=== PATIENT | female | born 1960 | race Caucasian/White ===

== ENCOUNTER 2018-02-23 15:24 | Emergency (ER) | payer OTHER ==
[2018-02-23] MEDS ORDERED: LIDOCAINE 5% (700 MG) TRANSDERMAL ADH..PATCH TP ONE (16:03)
--- NOTE | 2018-02-23 16:44 | RADIOLOGY REPORT (SQ) ---
EXAM DESCRIPTION: L SPINE WHOLE COMPLETED DATE/TIME: 02/23/2018 4:33 pm REASON FOR STUDY: fall pain COMPARISON: None. NUMBER OF VIEWS: Five views including obliques. TECHNIQUE: AP, lateral, oblique, and sacral radiographic images acquired of the lumbar spine. LIMITATIONS: None. FINDINGS: MINERALIZATION: Normal. SEGMENTATION: Normal. No transitional anatomy. ALIGNMENT: Normal. VERTEBRAE: Maintained height. No fracture or worrisome bone lesion. DISCS: Preserved height. No significant osteophytes or end plate irregularity. POSTERIOR ELEMENTS: Intact. Mild arthritic changes lower facet joints. HARDWARE: None in the spine. PARASPINAL SOFT TISSUES: Normal. PELVIS: Intact as visualized. No fractures or worrisome bone lesions. SI joints intact. OTHER: Increased fecal material noted of the colon. IMPRESSION: No compression fractures. Mild arthritic changes lower facet joints. TECHNICAL DOCUMENTATION: JOB ID: [id number] [employer]- All Rights Reserved Reading location - IP/workstation name: [email or web address]
--- NOTE | 2018-02-23 16:46 | RADIOLOGY REPORT (SQ) ---
EXAM DESCRIPTION: SACRUM AND COCCYX COMPLETED DATE/TIME: 02/23/2018 4:33 pm REASON FOR STUDY: fall pain COMPARISON: None. NUMBER OF VIEWS: Three views. TECHNIQUE: AP, lateral, and tilt views of the sacrum and coccyx. LIMITATIONS: None. FINDINGS: MINERALIZATION: Normal. BONES: No acute fracture or dislocation. No worrisome bone lesions. SI joints intact. SOFT TISSUES: No soft tissue swelling. No foreign body. OTHER: Prominent soft tissues the anatomic pelvis, concerning for distended urinary bladder or other pelvic mass. IMPRESSION: No acute fractures identified. Prominent soft tissues anatomic pelvis, concerning for distended urinary bladder or other pelvic mass . Correlate clinically. TECHNICAL DOCUMENTATION: JOB ID: [id number] [employer]- All Rights Reserved Reading location - IP/workstation name: [email or web address]
--- NOTE | 2018-02-23 18:13 | ER Document Report ---
ED General - General Chief Complaint: Fall Stated Complaint: FALL ARM PAIN Time Seen by Provider: 02/23/18 15:34 TRAVEL OUTSIDE OF THE [place] IN LAST 30 DAYS: No - HPI Patient complains to provider of: Fall arm pain Notes: Patient coming in for evaluation after a fall. Patient states she was in the office on [place] when a drawer to the following Up and behind her patient stepped back following hitting her left arm and triceps area also landing on her buttocks. Patient states most of her pain is in her tailbone region patient was brought in by EMS. The spine and backboard precautions. Patient was given a milligram of Dilaudid prior to arrival. Patient resting comfortably upon our evaluation. States she has a history bipolar disease and fibromyalgia. Denies any other medical etiologies patient denies any loss of consciousness denies any hip pain neck pain chest pain or abdominal pain. Patient related to EMS and reported by EMS that there is a known spirit ghost in this office more likely pulled out the drawer according to EMS report - Related Data Allergies/Adverse Reactions: No Known Allergies Allergy (Unverified 02/23/18 15:40) Past Medical History - Social History Smoking Status: Never Smoker Chew tobacco use (# tins/day): No Frequency of alcohol use: None Drug Abuse: None Family History: Reviewed & Not Pertinent Patient has suicidal ideation: No Patient has homicidal ideation: No Renal/ Medical History: Denies: Hx Peritoneal Dialysis Psychiatric Medical History: Reports: Hx Bipolar Disorder, Hx Depression - PTSD Past Surgical History: Reports: Hx Orthopedic Surgery - L wrist Review of Systems - Review of Systems Constitutional: No symptoms reported EENT: No symptoms reported Cardiovascular: No symptoms reported Respiratory: No symptoms reported Gastrointestinal: No symptoms reported Genitourinary: No symptoms reported Female Genitourinary: No symptoms reported Musculoskeletal: Back pain Skin: No symptoms reported Hematologic/Lymphatic: No symptoms reported Neurological/Psychological: No symptoms reported Physical Exam - Vital signs Vitals: Temp Pulse Resp BP Pulse Ox 98.7 F 70 16 136/68 H 96 02/23/18 15:35 02/23/18 15:35 02/23/18 15:35 02/23/18 15:35 02/23/18 15:35 Interpretation: Normal - General General appearance: Appears well, Alert - HEENT Head: Normocephalic, Atraumatic Eyes: Normal Pupils: PERRL Neck: Normal, Other - Cleared by Nexus criteria - Respiratory Respiratory status: No respiratory distress Chest status: Nontender Breath sounds: Normal Chest palpation: Normal - Cardiovascular Rhythm: Regular Heart sounds: Normal auscultation Murmur: No - Abdominal Inspection: Normal Distension: No distension Bowel sounds: Normal Tenderness: Nontender Organomegaly: No organomegaly - Back Back: Normal, Nontender Notes: Tenderness to palpation of the tailbone SI joints. Palpation of the spine reveals no step-offs no deformities no tenderness - Extremities General upper extremity: Normal inspection - Patient was small linear bruise along the upper triceps region of the left arm, Nontender, Normal color, Normal ROM, Normal temperature General lower extremity: Normal inspection, Nontender, Normal color, Normal ROM , Normal temperature, Normal weight bearing. No: Gerry's sign - Neurological Neuro grossly intact: Yes Cognition: Normal Orientation: AAOx4 Alyce Coma Scale Eye Opening: Spontaneous [place] Coma Scale Verbal: Oriented [place]ce Coma Scale Motor: Obeys Commands [place] Coma Scale Total: 15 Speech: Normal Motor strength normal: LUE, RUE, LLE, RLE Sensory: Normal - Psychological Associated symptoms: Normal affect, Normal mood - Skin Skin Temperature: Warm Skin Moisture: Dry Skin Color: Normal Course - Re-evaluation Re-evalutation: 02/23/18 22:58 X-rays not show any acute bony abnormality. There was mention on the x-ray of a distended bladder versus mass however patient does relate that while having x- rays performed she was holding her urine and had to be urgently after the x-ray more likely this was rinsing the bladder patient does have a small bruise explained the patient more likely she has deep contusions did offer the patient Ultram for her pain control patient relates that "Ultram does not do anything for my pain is just Tylenol however I will take the prescription for Ultram" patient also encouraged to use ice packs warm packs - Vital Signs Vital signs: Temp Pulse Resp BP Pulse Ox 98.2 F 67 15 122/72 97 02/23/18 18:23 02/23/18 18:23 02/23/18 18:23 02/23/18 18:23 02/23/18 18:23 Discharge - Discharge Clinical Impression: Coccygeal pain Contusion Qualifiers: Encounter type: initial encounter Contusion area: upper arm Laterality: left Qualified Code(s): S40.022A - Contusion of left upper arm, initial encounter Condition: Good Disposition: HOME, SELF-CARE Instructions: Anti-Inflammatory Medication ([facility]), Contusion ([facility]), Oral Narcotic Medication ([facility]) Additional Instructions: Your x-rays today did not show any signs of acute fracture. Would highly recommend she follow-up with your primary care physician for further evaluation. Return to ER if symptoms worsen. For your pain control we recommend taking 600 mg of Motrin along with 650mg or 1000milligrams of Tylenol at one time do this 3 times a day for pain control. We also applied ice packs and warm packs to the areas of pain. Prescriptions: Tramadol HCl [Ultram 50 mg Tablet] 50 mg PO ASDIR PRN #14 tablet PRN Reason: Referrals: DOROTHEA SOLORIO DO [Primary Care Provider] - Follow up as needed
[2018-02-23 18:24] VITALS: BP 122/72
== END 2018-02-23 18:24 | disposition home or self-care (01) ==
LOC: ER 15:24
DX: M53.3 Sacrococcygeal disorders, not elsewhere classified (principal); S40.022A Contusion of left upper arm, initial encounter; W01.190A Fall on same level from slipping, tripping and stumbling with subsequent striking against furniture, initial encounter; Y92.139 Unspecified place military base as the place of occurrence of the external cause; Y99.0 Civilian activity done for income or pay
CPT/HCPCS: 72110; 72220; 99284

== ENCOUNTER → 2018-10-14 | Outpatient (CLI) | payer OTHER | LOC: WI 11:05 | PROVIDERS: ATTEND Family Medicine | DX: Z12.31 Encounter for screening mammogram for malignant neoplasm of breast (principal) | CPT/HCPCS: 77067 ==

== ENCOUNTER → 2019-10-20 | Outpatient (CLI) | payer OTHER ==
--- NOTE | 2019-10-23 16:31 | WOMENS IMAGING REPORT ---
EXAM DESCRIPTION: 3D SCREENING MAMMO BILAT COMPLETED DATE/TIME: 10/20/2019 12:20 pm REASON FOR STUDY: Z12.31 SCREENING MAMMO Z12.31 ENCNTR SCREEN MAMMOGRAM FOR MALIGNANT NEOPLASM OF B RE COMPARISON: 10/14/2018. EXAM PARAMETERS: Standard craniocaudal and mediolateral oblique views of each breast recorded using digital acquisition and breast tomosynthesis. Read with the assistance of CAD. .[facility] - et[employer] Clerk Stenographer Version 9.2 LIMITATIONS: None. FINDINGS: RIGHT BREAST MASSES: No suspicious masses. CALCIFICATIONS: No new or suspicious calcifications. ARCHITECTURAL DISTORTION: None. ASYMMETRY: Focal asymmetry in the right outer breast approximately 8-9 o'clock position, 4-5 cm from the nipple. OTHER: No other significant findings. LEFT BREAST MASSES: No suspicious masses. CALCIFICATIONS: No new or suspicious calcifications. ARCHITECTURAL DISTORTION: None. ASYMMETRY: None noted. OTHER: No other significant findings. IMPRESSION: Focal asymmetry in the right breast. Further evaluation with diagnostic mammogram and p ossible ultrasound recommended. 0 Incomplete: Needs Additional Imaging Evaluation and/or prior Mammograms for Comparison. BREAST DENSITY: b. There are scattered areas of fibroglandular density. BIRAD: ASSESSMENT: 0 Incomplete: Needs Additional Imaging Evaluation and/or prior Mammograms for C omparison. RECOMMENDATION: RECOMMENDED FOLLOW-UP: Right breast diagnostic mammogram and possible ultrasound. The patient will be contacted for additional imaging. COMMENT: The patient has been notified of the results by letter per SA requirements. Additional no tification policies are in place for contacting patient with suspicious or incomplete findings. Quality ID #225: The [employer] recommends an annual screening mammogram for women aged 40 years or over. This facility utilizes a reminder system to ensure that all patients receive reminder letters, and/or direct phone calls for appointments. This includes reminders for routine scr eening mammograms, diagnostic mammograms, or other Breast Imaging Interventions when appropriate. Th is patient will be placed in the appropriate reminder system. TECHNICAL DOCUMENTATION: FINDING NUMBER: (1) ASSESSMENT: (1) JOB ID: [id number] 2011 [employer]- All Rights Reserved Reading location - IP/workstation name: [email or web address]
== END ==
LOC: WI 13:00
PROVIDERS: ATTEND Family Medicine
DX: Z12.31 Encounter for screening mammogram for malignant neoplasm of breast (principal)
CPT/HCPCS: 77063; 77067

== ENCOUNTER → 2019-10-30 | Outpatient (CLI) | payer OTHER ==
--- NOTE | 2019-10-30 10:59 | WOMENS IMAGING REPORT ---
EXAM DESCRIPTION: 3D DX MAMMO RIGHT UNILAT COMPLETED DATE/TIME: 10/30/2019 9:26 am REASON FOR STUDY: R92.2 INCONCLUSIVE MAMMOGRAM R92.2 INCONCLUSIVE MAMMOGRAM COMPARISON: 10/20/2019 EXAM PARAMETERS: True lateral cone compression views and tomosynthesis in 2 projections. LIMITATIONS: None. FINDINGS: BREAST LATERALITY: right MASSES: No suspicious masses. CALCIFICATIONS: No new or suspicious calcifications. ARCHITECTURAL DISTORTION: None. ASYMMETRY: None noted. OTHER: No other significant findings. Ultrasound of the right breast demonstrates no solid or cystic mass. IMPRESSION: No evidence of malignancy. BREAST DENSITY: b. There are scattered areas of fibroglandular density. BIRAD: ASSESSMENT: 1 Negative. RECOMMENDATION: RECOMMENDED FOLLOW UP: Birads 1 or 2: The patient should resume routine screening . SPECIFIC INTERVENTION/IMAGING/CONSULTATION RECOMMENDED:No additional intervention/ imaging/consultati on needed at this time. COMMUNICATION:The imaging findings were not discussed with the patient. Her referring provider has be en notified of the findings. COMMENT: The patient has been notified of the results by letter per SA requirements. Additional no tification policies are in place for contacting patient with suspicious or incomplete findings. Quality ID #[id number]: The [employer] recommends an annual screening mammogram for women aged 40 years or over. This facility utilizes a reminder system to ensure that all patients receive reminder letters, and/or direct phone calls for appointments. This includes reminders for routine scr eening mammograms, diagnostic mammograms, or other Breast Imaging Interventions when appropriate. Th is patient will be placed in the appropriate reminder system. TECHNICAL DOCUMENTATION: FINDING NUMBER: (1) ASSESSMENT: (1) JOB ID: [id number] 2010 [employer]- All Rights Reserved Reading location - IP/workstation name: [email or web address]
--- NOTE | 2019-10-30 11:00 | WOMENS IMAGING REPORT ---
EXAM DESCRIPTION: U/S BREAST UNILAT LIMITED COMPLETED DATE/TIME: 10/30/2019 10:15 am REASON FOR STUDY: RT BREAST R92.2 R92.2 INCONCLUSIVE MAMMOGRAM COMPARISON: None. LIMITATIONS: None. FINDINGS: Please see correlative diagnostic mammography report from the same date for full findings. IMPRESSION: Please see correlative diagnostic mammography report from the same date for full finding s. TECHNICAL DOCUMENTATION: JOB ID: [id number] 2010 [employer]- All Rights Reserved Reading location - IP/workstation name: [email or web address]
== END ==
LOC: WI 08:59
PROVIDERS: ATTEND Family Medicine
DX: R92.2 Inconclusive mammogram (principal)
CPT/HCPCS: 76642; 77065